=== PATIENT | male | born 1945 | race African-American/Black ===

== ENCOUNTER 2020-01-24 12:04 | Outpatient (CLI) | payer MEDICARE ==
--- NOTE | 2020-01-24 13:36 | RAD ---
CHEST 2 VIEWS: COMPARISON: 07/04/2019. HISTORY: Dyspnea. FINDINGS: Normal cardiac silhouette. Atherosclerosis of the aorta. Pulmonary vessels and hilum are normal. C ostophrenic angles are clear. No consolidation or masses. There are chronic lung parenchymal change s. No pneumothorax or acute osseous abnormalities. IMPRESSION: Atherosclerosis. No acute cardiopulmonary process. POS: PPP
== END 2020-01-24 12:05 | disposition home or self-care (01) ==
LOC: BICRAD 12:04
PROVIDERS: ATTEND Internal Medicine Pulmonary Disease
DX: R06.00 Dyspnea, unspecified (principal); I70.0 Atherosclerosis of aorta
CPT/HCPCS: 71046

== ENCOUNTER 2022-07-08 10:16 | Outpatient (CLI) | payer MEDICARE ==
[2022-07-08 12:10] LABS: #Basophils 0.1 10x3/uL (0.0-0.2); #Eosinphils 0.2 10x3/uL (0.0-0.5); #Monocytes 0.5 10x3/uL (0.0-1.1); #Neutrophils 2.1 10x3/uL (1.5-8.4); %Eosinophils 3.5 % (0.0-6.0); %Lymphocytes 42.1 % (18.0-47.0); %Monocytes 9.8 % (0.0-10.0); %Neutrophils 43.4 % (40.0-75.0); Hemoglobin 14.3 g/dL (13.5-17.5); Mean Corpuscular HGB CONC 32.9 g/dL (32.0-36.0); Mean Corpuscular Hemoglobin 27.2 pg (27.0-33.0); Mean Corpuscular Volume 82.9 fl (81.2-95.1); Mean Platelet Volume 10.7 fl (7.4-10.4); Platelet Count 184 10x3/uL (150-450); Red Blood Cell (RBC) Count 5.25 10x6/uL (4.32-5.72); White Blood Cell (WBC) Count 4.8 10x3/uL (3.5-10.5)
[2022-07-08 12:22] LABS: Prothrombin Time 11.1 sec (9.5-12.1)
[2022-07-08 12:25] LABS: Anion Gap 13 mmol/L (10-20); BUN (Urea Nitrogen) 32 mg/dL (8.4-25.7); Calc. Creatinine Clearance 0 mL/min (70-130); Calcium 9.9 mg/dL (7.8-10.44); Carbon Dioxide 26 mmol/L (23-31); Chloride 103 mmol/L (98-107); Estimated GFR 40; Glucose 87 mg/dL (83-110); Potassium 4.2 mmol/L (3.5-5.1); Sodium 138 mmol/L (136-145)
== END 2022-07-08 10:17 | disposition home or self-care (01) ==
LOC: LABBT 10:16
PROVIDERS: ATTEND Orthopaedic Surgery
DX: Z01.818 Encounter for other preprocedural examination (principal); M17.12 Unilateral primary osteoarthritis, left knee
CPT/HCPCS: 80048; 85025; 85610; 87081; 93005; 93010

== ENCOUNTER 2022-07-13 06:40 | Inpatient (IN) | payer MEDICARE ==
[2022-07-13] MEDS ORDERED: Midazolam HCl 2 mg/2 ml Vial ONE (07:37)
[2022-07-13] MEDS ORDERED: Fentanyl 100 MCG/2 ML VIAL ONE ×4 (07:37→15:39)
[2022-07-13] MEDS ORDERED: Bupivacaine PF 0.5% 30 ML VIAL ONE ×2 (07:37→11:45)
[2022-07-13] MEDS ORDERED: EPINEPHrine 1 MG/ML AMP ONE (07:37)
[2022-07-13] MEDS ORDERED: Sodium Chloride 0.9% 100 ML ONE ×2 (07:39→09:31)
[2022-07-13] MEDS ORDERED: Tranexamic Acid 1,000 MG/10 ML VIAL ONE ×2 (07:39→12:38)
[2022-07-13] MEDS ORDERED: Vancomycin 1 GM/200 ML (FROZEN) BAG ONE (07:39)
[2022-07-13] MEDS ORDERED: Fentanyl 100 MCG/2 ML VIAL IV PRN (08:03)
[2022-07-13 08:12] LABS: SARS-CoV-2 NAA Rapid Test Not Detected (NotDetected)
[2022-07-13] MEDS ORDERED: HYDROcodone/Acetaminophen 10/325 mg Tablet PO PRN ×2 (08:15)
[2022-07-13] MEDS ORDERED: traMADol HCl 50 MG TAB PO PRN (08:15)
[2022-07-13] MEDS ORDERED: Ondansetron PF 4 MG/2 ML Vial IVP PRN ×2 (08:15→12:43)
[2022-07-13] MEDS ORDERED: Ropivacaine 0.2% 550 ML 550 ML NERVE BLCK SCH (08:15)
[2022-07-13] MEDS ORDERED: Zolpidem Tartrate 5 MG TAB PO PRN (08:15)
[2022-07-13] MEDS ORDERED: Promethazine HCl 25 MG/ML VIAL IM PRN ×2 (08:15→12:43)
[2022-07-13] MEDS ORDERED: ePHEDrine 50 MG/ML VIAL ONE (09:00)
[2022-07-13] MEDS ORDERED: Dexamethasone 20 MG/5 ML VIAL ONE (09:00)
[2022-07-13] MEDS ORDERED: Lidocaine 1% PF 5 ML VIAL ONE (09:00)
[2022-07-13] MEDS ORDERED: Ondansetron PF 4 MG/2 ML Vial ONE (09:00)
[2022-07-13] MEDS ORDERED: Labetalol HCl 100 MG/20 ML VIAL ONE (09:00)
[2022-07-13] MEDS ORDERED: PROPOFOL 200 MG/20 ML VIAL ONE (09:00)
[2022-07-13] MEDS ORDERED: PHENYLEPHRINE-NS 100 MCG/ML 10 ML SYRINGE ONE (09:00)
[2022-07-13] MEDS ORDERED: fentaNYL PF 100 MCG/2 ML SYRINGE ONE ×2 (09:27→09:46)
[2022-07-13] MEDS ORDERED: CEFAZOLIN 2 GM VIAL ONE (09:31)
[2022-07-13] MEDS ORDERED: Ondansetron HCl/PF 4 MG/2 ML Vial IVP PRN (11:37)
[2022-07-13] MEDS ORDERED: diphenhydrAMINE 25 MG CAP PO PRN (12:43)
[2022-07-13] MEDS: CEFAZOLIN 2 GM in Sodium Chloride 0.9% 100 ML IVPB SCH (18:23)
[2022-07-13] MEDS: Acetaminophen 325 MG TAB PO PRN (18:28)
[2022-07-13] MEDS: Aspirin 81 mg Enteric Coated Tablet PO SCH (21:04)
[2022-07-13] MEDS: Dextrose 5 %-0.45 % NaCl 1,000 ML IV SCH ×2 (21:04)
[2022-07-14] MEDS: Acetaminophen 325 MG TAB PO PRN ×3 (00:25→11:19)
[2022-07-14] MEDS: CEFAZOLIN 2 GM in Sodium Chloride 0.9% 100 ML IVPB SCH (02:13)
[2022-07-14 06:07] LABS: Hemoglobin 12.4 g/dL (14.0-18.0); Mean Corpuscular HGB CONC 33.3 g/dL (32.0-36.0); Mean Corpuscular Hemoglobin 28.9 pg (27.0-31.0); Mean Corpuscular Volume 86.6 fl (78.0-98.0); Mean Platelet Volume 9.1 fL (7.4-10.4); Platelet Count 136 10x3/uL (130-400); RBC Distribution Width 13.1 % (11.5-14.5); Red Blood Cell (RBC) Count 4.29 mill/uL (4.70-6.10); White Blood Cell (WBC) Count 8.6 10x3/uL (4.8-10.8)
[2022-07-14 06:29] LABS: Anion Gap 13 mmol/L (10-20); BUN (Urea Nitrogen) 23 mg/dL (8.4-25.7); Calc. Creatinine Clearance 40 mL/min (70-130); Calcium 8.7 mg/dL (7.8-10.44); Carbon Dioxide 22 mmol/L (23-31); Chloride 106 mmol/L (98-107); Estimated GFR 42; Glucose 158 mg/dL (83-110); Potassium 3.7 mmol/L (3.5-5.1); Sodium 137 mmol/L (136-145)
[2022-07-14] MEDS: Senokot S 8.6-50 MG TAB PO SCH ×2 (07:52→20:43)
[2022-07-14] MEDS: Aspirin 81 mg Enteric Coated Tablet PO SCH ×2 (07:52→20:42)
[2022-07-14] MEDS: Multivitamin W/ Minerals 1 TAB PO SCH (07:52)
[2022-07-14] MEDS: Ferrous Gluconate 324 MG TAB PO SCH ×2 (07:52→20:42)
[2022-07-14] MEDS: Dextrose 5 %-0.45 % NaCl 1,000 ML IV SCH ×3 (08:48→20:42)
[2022-07-14] MEDS: traMADol HCl 50 MG TAB PO PRN ×2 (14:08→20:42)
[2022-07-15] MEDS: Acetaminophen 325 MG TAB PO PRN (00:23)
[2022-07-15] MEDS: traMADol HCl 50 MG TAB PO PRN ×2 (02:04→16:15)
[2022-07-15 06:56] LABS: Hemoglobin 12.6 g/dL (14.0-18.0); Mean Corpuscular HGB CONC 33.6 g/dL (32.0-36.0); Mean Corpuscular Hemoglobin 29.7 pg (27.0-31.0); Mean Corpuscular Volume 88.2 fl (78.0-98.0); Platelet Count 123 10x3/uL (130-400); RBC Distribution Width 13.2 % (11.5-14.5); Red Blood Cell (RBC) Count 4.25 mill/uL (4.70-6.10)
[2022-07-15] MEDS: Dextrose 5 %-0.45 % NaCl 1,000 ML IV SCH ×3 (06:57→23:10)
[2022-07-15 07:13] LABS: Anion Gap 11 mmol/L (10-20); BUN (Urea Nitrogen) 21 mg/dL (8.4-25.7); Calc. Creatinine Clearance 44 mL/min (70-130); Calcium 8.6 mg/dL (7.8-10.44); Carbon Dioxide 22 mmol/L (23-31); Chloride 106 mmol/L (98-107); Estimated GFR 47; Glucose 180 mg/dL (83-110); Potassium 3.8 mmol/L (3.5-5.1); Sodium 135 mmol/L (136-145)
[2022-07-15] MEDS: Ferrous Gluconate 324 MG TAB PO SCH ×2 (09:24→20:39)
[2022-07-15] MEDS: Aspirin 81 mg Enteric Coated Tablet PO SCH ×2 (09:25→20:39)
[2022-07-15] MEDS: Multivitamin W/ Minerals 1 TAB PO SCH (09:25)
[2022-07-15] MEDS: Senokot S 8.6-50 MG TAB PO SCH ×2 (09:25→20:39)
[2022-07-15] MEDS ORDERED: Ondansetron ODT 4 MG TAB PO PRN (17:58)
[2022-07-15] MEDS ORDERED: Amlodipine 5 MG TAB PO SCH (19:00)
[2022-07-15 23:41] LABS: Bacteria/HPF None Seen HPF (None Seen); Bilirubin Negative (Negative); Blood, Urine Negative (Negative); Clarity Clear (Clear); Glucose, Urine (Dipstick) Normal (Negative); Ketone, Urine Negative (Negative); Leukocyte Negative Leu/uL (Negative); Nitrite Negative (Negative); Protein, Urine (Dipstick) 30 mg/dL (Neg-Trace); RBC/HPF 0-3 HPF (0-3); Squamous Epithelial 0-3 HPF (0-3); Urobilinogen Normal mg/dL (Less than 2); WBC/HPF None Seen HPF (0-3); pH, Urine 5.5 (5.0-9.0)
[2022-07-16 05:39] LABS: Hemoglobin 12.7 g/dL (14.0-18.0); Mean Corpuscular HGB CONC 33.1 g/dL (32.0-36.0); Mean Corpuscular Hemoglobin 28.8 pg (27.0-31.0); Mean Corpuscular Volume 87.1 fl (78.0-98.0); Mean Platelet Volume 9.6 fL (7.4-10.4); Platelet Count 112 10x3/uL (130-400); RBC Distribution Width 13.2 % (11.5-14.5); Red Blood Cell (RBC) Count 4.41 mill/uL (4.70-6.10); White Blood Cell (WBC) Count 9.5 10x3/uL (4.8-10.8)
[2022-07-16 05:46] LABS: Hemoglobin A1c 6.2 % (4.0-6.0)
[2022-07-16 06:00] LABS: ALT (SGPT) 8 U/L (8-55); AST (SGOT) 19 U/L (5-34); Albumin 3.6 g/dL (3.4-4.8); Alkaline Phosphatase 42 U/L (40-110); Anion Gap 14 mmol/L (10-20); BUN (Urea Nitrogen) 15 mg/dL (8.4-25.7); Bilirubin, Total 0.6 mg/dL (0.2-1.2); Calc. Creatinine Clearance 47 mL/min (70-130); Calcium 8.8 mg/dL (7.8-10.44); Carbon Dioxide 22 mmol/L (23-31); Chloride 102 mmol/L (98-107); Estimated GFR 50; Globulin 3.1 g/dL (2.4-3.5); Glucose 176 mg/dL (83-110); Potassium 3.7 mmol/L (3.5-5.1); Protein, Total 6.7 g/dL (5.8-8.1); Sodium 134 mmol/L (136-145)
[2022-07-16] MEDS: Dextrose 5 %-0.45 % NaCl 1,000 ML IV SCH ×2 (09:49→21:19)
[2022-07-16] MEDS: Amlodipine 5 MG TAB PO SCH (09:49)
[2022-07-16] MEDS: Ferrous Gluconate 324 MG TAB PO SCH ×2 (09:49→20:13)
[2022-07-16] MEDS: Multivitamin W/ Minerals 1 TAB PO SCH (09:50)
[2022-07-16] MEDS: Aspirin 81 mg Enteric Coated Tablet PO SCH ×2 (09:50→20:13)
[2022-07-16] MEDS: Senokot S 8.6-50 MG TAB PO SCH ×2 (09:50→20:13)
[2022-07-16] MEDS: traMADol HCl 50 MG TAB PO PRN (14:11)
[2022-07-17] MEDS: Dextrose 5 %-0.45 % NaCl 1,000 ML IV SCH ×2 (06:53→17:31)
[2022-07-17 07:00] LABS: Hemoglobin 12.3 g/dL (14.0-18.0); Mean Corpuscular HGB CONC 33.7 g/dL (32.0-36.0); Mean Corpuscular Hemoglobin 29.2 pg (27.0-31.0); Mean Corpuscular Volume 86.6 fl (78.0-98.0); Mean Platelet Volume 9.2 fL (7.4-10.4); Platelet Count 134 10x3/uL (130-400); White Blood Cell (WBC) Count 8.3 10x3/uL (4.8-10.8)
[2022-07-17] MEDS: Senokot S 8.6-50 MG TAB PO SCH ×2 (10:10→21:29)
[2022-07-17] MEDS: Aspirin 81 mg Enteric Coated Tablet PO SCH ×2 (10:10→21:29)
[2022-07-17] MEDS: Amlodipine 5 MG TAB PO SCH (10:10)
[2022-07-17] MEDS: Ferrous Gluconate 324 MG TAB PO SCH ×2 (10:10→21:29)
[2022-07-17] MEDS: Multivitamin W/ Minerals 1 TAB PO SCH (10:11)
[2022-07-17] MEDS: traMADol HCl 50 MG TAB PO PRN ×2 (11:57→22:46)
[2022-07-17 12:33] VITALS: BMI 22.8
[2022-07-18] MEDS: Dextrose 5 %-0.45 % NaCl 1,000 ML IV SCH ×3 (04:10→23:24)
[2022-07-18 05:21] LABS: Mean Corpuscular HGB CONC 33.6 g/dL (32.0-36.0); Mean Corpuscular Hemoglobin 29.1 pg (27.0-31.0); Mean Corpuscular Volume 86.5 fl (78.0-98.0); Mean Platelet Volume 8.5 fL (7.4-10.4); Platelet Count 167 10x3/uL (130-400); RBC Distribution Width 13.1 % (11.5-14.5); Red Blood Cell (RBC) Count 4.14 mill/uL (4.70-6.10); White Blood Cell (WBC) Count 7.4 10x3/uL (4.8-10.8)
[2022-07-18] MEDS: Amlodipine 5 MG TAB PO SCH (08:24)
[2022-07-18] MEDS: Ferrous Gluconate 324 MG TAB PO SCH ×2 (08:24→21:18)
[2022-07-18] MEDS: Aspirin 81 mg Enteric Coated Tablet PO SCH ×2 (08:24→21:18)
[2022-07-18] MEDS: Senokot S 8.6-50 MG TAB PO SCH ×2 (08:24→21:18)
[2022-07-18] MEDS: Multivitamin W/ Minerals 1 TAB PO SCH (08:24)
[2022-07-18] MEDS: traMADol HCl 50 MG TAB PO PRN ×2 (13:53→21:19)
[2022-07-19] MEDS: traMADol HCl 50 MG TAB PO PRN (03:33)
[2022-07-19 06:01] LABS: Hemoglobin 11.9 g/dL (14.0-18.0); Mean Corpuscular Hemoglobin 29.2 pg (27.0-31.0); Mean Corpuscular Volume 85.9 fl (78.0-98.0); Mean Platelet Volume 8.6 fL (7.4-10.4); Platelet Count 163 10x3/uL (130-400); Red Blood Cell (RBC) Count 4.08 mill/uL (4.70-6.10)
[2022-07-19] MEDS: Dextrose 5 %-0.45 % NaCl 1,000 ML IV SCH (09:23)
[2022-07-19] MEDS: Amlodipine 5 MG TAB PO SCH (09:23)
[2022-07-19] MEDS: Aspirin 81 mg Enteric Coated Tablet PO SCH (09:23)
[2022-07-19] MEDS: Senokot S 8.6-50 MG TAB PO SCH (09:24)
[2022-07-19] MEDS: Multivitamin W/ Minerals 1 TAB PO SCH (09:24)
[2022-07-19] MEDS: Ferrous Gluconate 324 MG TAB PO SCH (09:24)
[2022-07-19 11:31] VITALS: BP 170/78; TEMP 98
== END 2022-07-19 15:20 | disposition home health service (06) | DRG 470 ==
LOC: SDC 06:40 → SJJU 17:19 → OBSVTOIN 07-15 07:25
PROVIDERS: ADMIT Orthopaedic Surgery; ATTEND Orthopaedic Surgery
PROC: 0SRD0J9 Replacement of Left Knee Joint with Synthetic Substitute, Cemented, Open Approach (ICD-10-PCS; principal; 2022-07-13)
DX: M17.12 Unilateral primary osteoarthritis, left knee (principal); E87.1 Hypo-osmolality and hyponatremia; M25.762 Osteophyte, left knee; E11.22 Type 2 diabetes mellitus with diabetic chronic kidney disease; Z20.822 Contact with and (suspected) exposure to COVID-19; N18.30 Chronic kidney disease, stage 3 unspecified; G43.909 Migraine, unspecified, not intractable, without status migrainosus; I12.9 Hypertensive chronic kidney disease with stage 1 through stage 4 chronic kidney disease, or unspecified chronic kidney disease; Z79.82 Long term (current) use of aspirin
CPT/HCPCS: 36415; 36416; 80048; 80053; 81003; 81015; 83036; 85027; 96374; 96376; A4306; C1713; C1776; G0378; J0171; J1100; J2250; J2405; J2704; J2795; J3010; J3370-JW; J3490; J7042; S0020; U0002